=== PATIENT | female | born 1985 | race Caucasian/White ===

== ENCOUNTER 2018-02-17 19:01 | Emergency (ER) | payer OTHER ==
[2018-02-17 19:07] VITALS: O2SAT 99
--- NOTE | 2018-02-17 19:31 | C.PDOC ---
History Of Present Illness 32 year old female presents to the emergency department with complaints of lethargy and migrating body aches for the last two weeks. She reports a 3kg weight gain in the last two months, and states that she is usually a hearty eater. Patient also reports experiencing left thigh pain in the past but not at the moment. Denies neck pain or swelling. Does not notice an enlarged goiter. Time Seen by Provider: 02/17/18 19:17 Chief Complaint (Nursing): Medical Clearance History Per: Patient History/Exam Limitations: no limitations Onset/Duration Of Symptoms: Other (two weeks) Current Symptoms Are (Timing): Still Present Past Medical History Reviewed: Historical Data, Nursing Documentation, Vital Signs Vital Signs: Last Vital Signs Temp 97.9 F 02/17/18 22:14 Pulse 60 02/17/18 22:14 Resp 16 02/17/18 22:14 BP 123/85 02/17/18 22:14 Pulse Ox 99 02/17/18 22:14 - Medical History PMH: No Chronic Diseases Surgical History: No Surg Hx Family History: States: No Known Family Hx - Social History Hx Alcohol Use: No Hx Substance Use: No Review Of Systems Except As Marked, All Systems Reviewed And Found Negative. Constitutional: Positive for: Malaise, Other (lethargy, weight gain) Musculoskeletal: Positive for: Leg Pain (left thigh) Physical Exam - Physical Exam Appears: Non-toxic, No Acute Distress Skin: Warm, Dry Head: Atraumatic, Normacephalic Eye(s): bilateral: Normal Inspection, PERRL, EOMI Nose: Normal Oral Mucosa: Moist Neck: Supple, Other (enlarged, non-tender, thyroid gland/goiter) Chest: Symmetrical, No Tenderness Cardiovascular: Rhythm Regular, No Murmur Respiratory: Normal Breath Sounds, No Rales, No Rhonchi, No Wheezing Gastrointestinal/Abdominal: Normal Exam, Soft, No Tenderness, No Guarding, No Rebound Extremity: Normal ROM, No Tenderness, No Pedal Edema, No Calf Tenderness, No Swelling, No Other (homans sign) Pulses: Left Dorsalis Pedis: Normal, Right Dorsalis Pedis: Normal Neurological/Psych: Oriented x3, Normal Speech, Normal Cognition, Other ( neurologically intact, no focal deficits) Gait: Steady ED Course And Treatment - Laboratory Results Result Diagrams: 02/17/18 19:39 02/17/18 19:39 Lab Interpretation: Abnormal (TSH 161 H, UA neg, trop neg,) Urine POC: Negative ECG: Interpreted By Me ECG Rhythm: Sinus Rhythm ECG Interpretation: Normal Rate From EC O2 Sat by Pulse Oximetry: 99 (RA) Pulse Ox Interpretation: Normal - Radiology CXR: Interpreted by Me CXR Interpretation: Yes: No Acute Disease Reevaluation Time: 21:57 Reassessment Condition: Improved Medical Decision Making Medical Decision Making: Plan: EKG BNP CMP TSH Troponin I CBC CXR Two Views HCG Qualitative Urine Urinalysis 2200: enlarged, nontender goiter TSH 161 [address] Clincally mild [address]. Barba and [facility] local Endocrine- referal Disposition Doctor Will See Patient In The: Office Counseled Patient/Family Regarding: Studies Performed, Diagnosis - Disposition Referrals: Evette Barba MD [Medical Doctor] - Merry Norman MD [Staff Provider] - Kedar Blair MD [Staff Provider] - Disposition: HOME/ ROUTINE Disposition Time: 21:58 Condition: GOOD Additional Instructions: Call Monday to make appointment with an Recycling Tech Dr Barba or Dr. Tipton, or as referred by your insurance company Dr. Aníbal Blair may be your new local PMD (Primary Care Physician) Call Monday to make an appointment No new medications are indicated at this time. TSH 161 H All other workup, labs, UA, , CXR, EKG normal Instructions: Hypothyroidism (Underactive Thyroid), Fatigue (DC) Forms: [employer] (Kyrgyz) - Clinical Impression Clinical Impression: Lethargy, Weight gain - Scribe Statement The provider has reviewed the documentation as recorded by the Scribe (Nacho Corbettqvi) Provider Attestation: All medical record entries made by the Scribe were at my direction and personally dictated by me. I have reviewed the chart and agree that the record accurately reflects my personal performance of the history, physical exam, medical decision making, and the department course for this patient. I have also personally directed, reviewed, and agree with the discharge instructions and disposition.
[2018-02-17 19:37] LABS: HCG,QUALITATIVE URINE NEGATIVE (NEGATIVE)
[2018-02-17 19:39] LABS: SQUAMOUS EPITHIAL 2 /hpf (0-5); URINE BACTERIA RARE (<OCC); URINE BILIRUBIN NEGATIVE (NEGATIVE); URINE BLOOD NEGATIVE (NEGATIVE); URINE CLARITY Clear (Clear); URINE COLOR Straw (YELLOW); URINE GLUCOSE (UA) NORMAL (Normal); URINE LEUKOCYTE ESTERASE TRACE Leu/uL (Negative); URINE PROTEIN NEGATIVE (NEGATIVE); URINE UROBILINOGEN NORMAL mg/dL (0.2-1.0)
[2018-02-17 19:42] LABS: BASO # 0.1 K/uL (0.0-0.2); BASO % 0.8 % (0.0-2.0); EOS # 0.2 K/uL (0.0-0.7); EOS % 3.2 % (0.0-4.0); HEMOGLOBIN 13.5 g/dL (11.0-16.0); LYMPH % 45.4 % (20.0-40.0); MEAN CELL VOLUME 90.3 fL (81.0-99.0); MEAN CORPUSCULAR HGB CONC 33.3 g/dL (33.0-37.0); MEAN PLATELET VOLUME 8.2 fL (7.2-11.7); MONO # 0.5 K/uL (0.0-0.8); NEUT # 2.9 K/uL (1.8-7.0); NEUT % 43.6 % (50.0-75.0); NRBC % 0.1 % (0.0-2.0); RBC 4.48 Mil/uL (3.80-5.20); RED CELL DISTRIBUTION WIDTH 13.9 % (11.5-14.5); WHITE BLOOD COUNT 6.7 K/uL (4.8-10.8)
[2018-02-17 19:55] LABS: ALB/GLOB RATIO 1.2 (1.0-2.1); ALBUMIN 4.8 g/dL (3.5-5.0); ALT/SGPT 31 U/L (9-52); AST/SGOT 25 U/L (14-36); BLOOD UREA NITROGEN 9 mg/dL (7-17); CALCIUM 9.1 mg/dl (8.6-10.4); GFR AFRICAN-AMERICAN > 60; GFR NON-AFRICAN AMERICAN > 60
[2018-02-17 20:07] LABS: B-TYPE NATRIURETIC PEPTIDE 12.4 pg/mL (0-450)
[2018-02-17 22:15] VITALS: BP 123/85; PULSE 60; RESP 16; TEMP 97.9
--- NOTE | 2018-02-18 12:02 | RAD ---
Date of service: 02/17/2018 HISTORY: lethargy COMPARISON: No prior. TECHNIQUE: Chest PA and lateral FINDINGS: LUNGS: No active pulmonary disease. PLEURA: No significant pleural effusion identified. No pneumothorax apparent. CARDIOVASCULAR: Normal. OSSEOUS STRUCTURES: No significant abnormalities. VISUALIZED UPPER ABDOMEN: Normal. OTHER FINDINGS: None. IMPRESSION: No active disease.
--- NOTE | 2018-02-20 14:39 | CARD ---
APPROVED REPORT Date of service: 02/17/2018 EKG Measurement Heart [id number] <Conclusion> Normal sinus rhythm with sinus arrhythmia Normal ECG
== END 2018-02-17 22:15 | disposition home or self-care (01) ==
LOC: C.ER 19:01
DX: R53.83 Other fatigue (principal); R63.5 Abnormal weight gain